=== PATIENT | female | born 1950 | race African-American/Black ===

== ENCOUNTER 2024-04-14 13:00 | Outpatient (RCR) | payer OTHER, SELFPAY ==
--- NOTE | 2024-02-03 14:53 | OTOPEVAL1 ---
Assessment and note entered by Adan Kidd, TAE/Mayank, CHT Evaluation Information Assessment Status Evaluation Diagnosis Carpal tunnel syndrome, right upper limb Subjective Information Patient reports experiencing intermittent tingling in her hand for about 3-4 months. 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 She wears a wrist immobilizer at work. No pain associated with this, just paresthesia. She reports she has been having difficulties with dropping items and with gripping. Reported Pain Level Pain Score 0: Self Report Additional Pain Score Comments No pain , just feeling tingling today. Assessment OT Clinical Summary Patient referred to OT with dx of carpal tunnel syndrome. She presents with intermittent paresthesia in the thumb, index, middle, and ring fingers of the right hand. She has positive upper limb tension test for the median nerve and positive Phalen's. Skilled OT indicated to for use of modalities, therapeutic exercise, modalities, manual therapy, HEP instruction and progression to facilitate reduced nerve compression and improved functional use of the right UE. Plan of Care Interventions Therapeutic Exercise,Manual Therapy,Therapeutic Activities,Hot Pack/Cold Pack,Ultrasound,Paraffin OT Services Indicated Yes Treatment Frequency and 1-2x/week for 8 visits Duration These treatments will address the objective and functional deficits as defined above. The patient will be advanced safely and appropriately in order for the patient to progress towards his/her prior level of function. Additional exercises will be introduced and as well as a comprehensive home exercise program upon discharge, if needed, ?to ensure carryover of functional gains achieved in the clinic. This treatment plan has been reviewed and agreement upon by the patient.
--- NOTE | 2024-02-03 14:53 | OPREHPOC ---
Outpatient Therapy Plan of Care This is a Multidisciplinary Plan of Care that may contain components documented by all disciplines (PT, OT, and ST.) OT Problem 1 OT Problem #1 Knowledge Deficit OT Goal 1 Goal / Goal Update 1. Patient to be independent with instructed materials. Target Visit 8 OT Problem 2 OT Problem #2 Impaired Flexibility OT Goal 1 Goal / Goal Update 1. Patient to be able to perform upper limb tension test with the right UE with a negative result to demonstrate reduced nerve compression/ irritation. Target Visit 8 OT Problem 3 OT Problem #3 Impaired Strength OT Goal 1 Goal / Goal Update 1. Patient to improve functional strength for ADLs as demonstrated by being able to complete gross wrist strengthening with 2 lb. free weight x20 reps. 2. Patient to improve functional strength for ADLs as demonstrated by improving right sheet catcher strength to 68 lbs.
--- NOTE | 2024-03-10 15:57 | OTOPPROG ---
Assessment and note entered by Adan Kidd, TAE/Mayank, CHT OT Progress Update 03/10/24 Diagnosis Carpal tunnel syndrome, right upper limb Subjective Information Patient reports progress with therapy. She states she has been experiencing less instances of tingling and not as severe of tingling in the right hand. She is noticing that she is having more days of no tingling at all. She reports improvement with not dropping items as much. She continues to wear a wrist brace at work. She does not wear the brace to sleep, reports she forgets to put it on. She reports that her HEP does relieve her symptoms. Assessment OT Clinical Summary Patient referred to OT with dx of carpal tunnel syndrome. She is making progress with therapy. She demonstrates reduced nerve sensitivity as measured by the Phalen's and reverse Phalen's tests - neither elicited tingling in her hand. She was able to complete upper limb tension test without nerve pain, but she does exhibit muscle tension with this. Overall her strength is improving and carpal tunnel symptoms are improving . Continued skilled OT indicated to progress her HEP, for continued use of modalities, therapeutic exercise, modalities, manual therapy, HEP instruction and progression to facilitate reduced nerve compression and improved functional use of the right UE. Plan of Care Interventions Therapeutic Exercise,Manual Therapy,Therapeutic Activities,Hot Pack/Cold Pack,Ultrasound,Paraffin OT Services Indicated Yes Treatment Frequency and 1x/week for 4 visits Duration These treatments will address the objective and functional deficits as defined above. The patient will be advanced safely and appropriately in order for the patient to progress towards his/her prior level of function. Additional exercises will be introduced and as well as a comprehensive home exercise program upon discharge, if needed, ?to ensure carryover of functional gains achieved in the clinic. This treatment plan has been reviewed and agreement upon by the patient.
--- NOTE | 2024-03-10 15:57 | OPREHPOC ---
Outpatient Therapy Plan of Care This is a Multidisciplinary Plan of Care that may contain components documented by all disciplines (PT, OT, and ST.) OT Problem 1 OT Problem #1 Knowledge Deficit OT Goal 1 Goal / Goal Update 1. Patient to be independent with instructed materials. ---OT POC UPDATE 03/10/24--- 1. Met, continue as HEP is progressed Target Visit 10 OT Problem 2 OT Problem #2 Impaired Flexibility OT Goal 1 Goal / Goal Update 1. Patient to be able to perform upper limb tension test with the right UE with a negative result to demonstrate reduced nerve compression/ irritation. ---OT POC UPDATE 03/10/24--- 1. Met Target Visit 10 OT Problem 3 OT Problem #3 Impaired Strength OT Goal 1 Goal / Goal Update 1. Patient to improve functional strength for ADLs as demonstrated by being able to complete gross wrist strengthening with 2 lb. free weight x20 reps. 2. Patient to improve functional strength for ADLs as demonstrated by improving right assistant foreman strength to 68 lbs. ---OT POC UPDATE 03/10/24--- 1. Progressing, fatigues at 15 reps, continue strengthening 2. Met, upgrade to 73 lbs. New Goal: 3. Increase right elbow and forearm strength for ADLs and work tasks as demonstrated by increasing to 3 lbs. for elbow and forearm strengthening x15 reps. Target Visit 10
--- NOTE | 2024-04-14 13:50 | OTOPDC ---
Assessment and note entered by TAE Acosta/Mayank, CHT OT Discharge 04/14/24 Assessment Status Discharge Diagnosis Carpal tunnel syndrome, right upper limb Subjective Information Patient reports progress with therapy. She states she has been experiencing less instances of tingling and not as severe of tingling in the right hand. She is noticing that she is having more days of no tingling at all. She reports her right hand can feel heavy at times, patient reports this typically occurs first thing in the morning. She intermittently wears a brace at night . Reports she stopped wearing the brace at night due to no longer having hand pain at night. She reports intermittent difficulty with picking up small items. Reported Pain Level Pain Score 0: Self Report Assessment OT Clinical Summary Patient referred to OT with dx of carpal tunnel syndrome. She has attended 9 OT sessions focused on reducing right hand paresthesia and pain. She has made great progress. No longer experiencing pain. Paresthesias have reduced. Phalen's and reverse Phalen's tests - neither elicited tingling in her hand. She was able to complete upper limb tension test without nerve pain. Bilateral UE strength is 5/5 and symmetrical. Bilateral assembly cleaner strengths are above normal limits. Reviewed HEP and splinting. Patient to continue with HEP. D/C OT with HEP. Plan of Care OT Services Indicated No
== END 2024-04-18 12:01 | disposition home or self-care (01) ==
LOC: ANHOT 13:00
PROVIDERS: PCP Physician Assistant; Visit Provider Physician Assistant
DX: G56.01 Carpal tunnel syndrome, right upper limb (principal)
CPT/HCPCS: 97018; 97035; 97110; 97140; 97165; 97530

== ENCOUNTER 2024-08-17 21:57 | Emergency (ER) | payer OTHER, SELFPAY ==
--- NOTE | ~2024-08-17 | CT_ITS ---
CT of the Abdomen and Pelvis: Indication: Constipation Technique: 2.5 mm axial scans were obtained through the abdomen and pelvis following intravenous adm inistration of 100 cc of Omnipaque 350. Dose reduction technique was used on this scan by utilizing a utomated exposure control and iterative reconstruction technique. The dose-length product (DLP) was 3 41.49 mGy-cm. Findings: Scans through the lung bases are unremarkable. The liver, spleen, pancreas, gallbladder, adrenals and left kidney are within normal limits. 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 No evidence of aortic aneurysm. No lymphadenopathy. Suspected wall thickening somewhat asymmetric to the left side of the distal rectum. There is promine nt stool at the rectum which could reflect fecal impaction/constipation.. Images through the pelvis were performed. Urinary bladder unremarkable. No pelvic mass. No ascites. Impression: Possible asymmetric wall thickening the left side of the distal rectum. Neoplastic lesion not exclude d. Correlation with direct inspection recommended. Prominent stool at the rectum could reflect fecal impaction/constipation. Malrotated right kidney. Reviewed, dictated and finalized at location M. Impression: Possible asymmetric wall thickening the left side of the distal rectum. Neoplas tic lesion not excluded. Correlation with direct inspection recommended. Prominent stool at the rectum could reflect fecal impaction/constipation. Malrotated right kidney.
[2024-08-17 22:00] VITALS: BP 138/72; PULSE 66; RESP 18; TEMP 36.7; O2SAT 100
--- OUTSIDE RECORDS SUMMARY | 2024-08-17 22:00 | XMS_ITS | Clinical Summary ---
Author Organization [facility] Address [address], [facility] [address] [place] [address] Phone Care Team Providers Care Coin Machine Collector Name Role Phone Beth Canseco DO Primary Care Provider [phone] Edin Reid DO Unavailable [phone] Allergies Active Allergy Reactions Criticality Noted Date Comments Atorvastatin Other (see Comments) Low 06/19/2016 Medications aspirin EC 81 MG Tablet Delayed Response Take 81 mg by mouth. 10/01/2016 Active linaclotide (LINZESS) 145 MCG Capsule Take 145 mcg by mouth. 08/12/2019 Active MULTIPLE VITAMIN PO Take by mouth. Gummy Active lisinopril (PRINIVIL, ZESTRIL) 10 MG Tablet TAKE 1 TABLET BY MOUTH ONCE DAILY 12/02/2020 Active Active Problems Problem Noted Date Diagnosed Date Nodule of left lung 12/11/2020 Immunizations Immunization Administration Dates Next Due Covid-19, Mrna, Lnp-s, Pf, 3 0 Mcg/0.3 Ml Dose ([employer]) 02/12/2021,06/28/2020,06/05/2020 Influenza Vaccine, Quadrivalent, PF 01/04/2020 Influenza, High-dose, Quadrivalent 01/11/2018 Influenza, high-dose, trivalent, PF 02/03/2019,0 01/11/2018 Pneumococcal Vaccine - 13 Valent 09/10/2017 Family History Medical History Relation Name Comments Cancer Brother Cancer Mother Diabetes Sister 1 Cancer Sister 2 Relation Name Status Comments Brother Father Mother Sister 1 Sister 2 Alive Social History Tobacco Use Types Packs/Day Years Used Date Smoking Tobacco: Never Smokeless Tobacco: Never Alcohol Use Standard Drinks/Week Comments Not Currently 0 (1 standard drink = 0.6 oz pur e alcohol) PHQ-2 Answer Date Recorded Total Score - Questions 1-9 0 03/20 Education Answer Date Recorded What is the highest level of school you have completed or the highest degree you have received? 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 Not on file Not on file Last Filed Vital Signs Vital Sign Reading Time Taken Comments Blood Pressure 124/70 04/09/2021 11:48 AM CARE NURSE RN Pulse 88 04/09/2021 11:48 AM CARE NURSE RN Temperature 36.1 C (96.9 F) 04/09/2021 11:48 AM CARE NURSE RN Respiratory Rate 18 04/09/2021 11:48 AM CARE NURSE RN Oxygen Saturation 99% 04/09/2021 11:48 AM CARE NURSE RN Inhaled Oxygen Concentration - - Weight 68.8 kg (151 lb 9.6 oz) 04/09/2021 11:48 AM CARE NURSE RN Height 167.6 cm (5' 6 ) 04/09/2021 11:48 AM CARE NURSE RN Body Mass Index 24.47 04/09/2021 11:48 AM CARE NURSE RN Plan of Treatment Health Maintenance Due Date Last Done Comments Hepatitis C Virus (HCV) Screening 1950 TdaP Immunization 1950 Colonoscopy 01/27/1997 Colorectal Cancer Screening 01/27/1997 Cologuard 01/27/2002 Immunochemical Fecal Occult Blood 01/27/2002 Zoster Immunization (1 of 2) 01/27/2002 Pneumococcal Immunization (50+ years) (2 of 2 - PPSV23) 09/10/2018 09/10/2017 Influenza Immunization (#1) 12/19/202312/18, 02/03/2019, 01/11/2018, Additional history exists SARS-COV-2 Immunization ( - season) 2023 02/12/2021, 06/28/2020, 06/05/2020 Respiratory Syncytial Virus (RSV) Immunization (Adult) (1 - 1-dose 75+ series) 01/27/2027 Hepatitis B Immunization Aged Out No longer eligible based on patient's age to complete this topic Meningococcal Immunization (ACWY) Aged Out No longer eligible based on patient's age to complete this topic Rotavirus Immunization Aged Out No lo nger eligible based on patient's age to complete this topic Insurance MEDICARE C [facility] Care Teams Coin Machine Collector Relationship Specialty Start Date End Date Beth Canseco DO [address] [id number] PCP - General Family Medicine 11/01/20 Edin Reid DO [address] [place] [address] [phone] Consulting Physician Oncology 11/01/20
--- OUTSIDE RECORDS SUMMARY | 2024-08-17 22:01 | XMS_ITS | Clinical Summary ---
Author Organization [facility] Address [facility] [place] [address] Care Team Providers Care Warpman Name Role Phone Tiffany Murray PA-C Primary Care Provider [phone] Allergies Active Allergy Reactions Criticality Noted Date Comments Atorvastatin Other (see comment) Low 06/19/2016 Medications aspirin 81 MG chewable tablet Chew 1 tablet (81 mg total) by mouth daily. Active Tenapanor HCl (IBSRELA) 50 MG Tab 02/19/2023 Active losartan (COZAAR) 25 MG tablet Take 1 tablet (25 mg total) by mouth daily. 01/11/2023 Active hydroCHLOROthia zide (MICROZIDE) 12.5 MG tablet Take 1 tablet (12.5 mg total) by mouth every morning. 03/03/2023 Active vitamin C (ASCORBIC ACID) 1000 MG tablet Take 1 tablet (1,000 mg total) by mouth daily. Active Probiotic Product (PROBIOTIC BLEND OR) Active guaiFENesin ER (MUCINEX) 600 MG 12 hr tablet Take 2 tablets (1,200 mg total) by mouth 2 (two) times daily. 28 tablet 05/12/2023 Active Active Problems Problem Noted Date Diagnosed Date Left wrist pain 09/23/2020 Acute bilateral ankle pain 09/05/2019 Sprain of deltoid ligament o f right ankle, initial encounter 09/05/2019 Sprain of left ankle, unspec ified ligament, initial encounter 09/05/2019 Hyperlipidemia 08/04/2018 Hypertensive disorder 08/04/2018 Shoulder pain 08/04/2018 Vitamin D deficiency 08/04/2018 Foot pain 08/04/2018 Encounters Date Type Department Care Team Description 08/16/2024 8:48 AM CDT Hospital Encounter [facility] [place] [address] Tiffany Murray PA-C Arrived 08/16/2024 Travel 07/20/2024 Telephone [facility] [address] [place] [address] Idalia Castle RMA Consult 07/19/2024 Telephone [facility] [address] [place] [address] Idalia Castle RMA Consult from Last 3 Months Family History Medical History Relation Comments No Known Problems Father Hypertension Mother Relation Status Comments Father Mother Social History Tobacco Use Types Packs/Day Years Used Date Smoking Tobacco: Never Smokeless Tobacco: Never Tobacco Cessation:Counseling Given: No Comments:non smoker Alcohol Use Standard Drinks/Week Comments No 0 (1 standard drink = 0.6 oz pur e alcohol) PHQ-2 Answer Date Recorded PHQ-2 Score - If the patient scores above 3, please move on to questions 3-9 0 04/30/2021 Comments No Sex and Gender Information Value Date Recorded Sex Assigned at Not on file Legal Sex Female 9:35 PM CDT Gender Identity Female 04/02/2021 8:55 PM VP ANCILLARY Sexual Orientation Straight 04/02/2021 8: 55 PM VP ANCILLARY Last Filed Vital Signs Vital Sign Reading Time Taken Comments Blood Pressure 123/84 05/12/2023 10:25 AM VP ANCILLARY Pulse 68 05/12/2023 10:25 AM VP ANCILLARY Temperature 36.8 C (98.3 F) 05/12/2023 10:25 AM VP ANCILLARY Respiratory Rate 16 05/12/2023 10:25 AM VP ANCILLARY Oxygen Saturation 100% 05/12/2023 10:25 AM VP ANCILLARY Inhaled Oxygen Concentration - - Weight 74.8 kg (165 lb) 05/12/2023 10:25 AM VP ANCILLARY Height 165.1 cm (5' 5 ) 05/12/2023 10:25 AM VP ANCILLARY Body Mass Index 27.46 05/12/2023 10:25 AM VP ANCILLARY Plan of Treatment Health Maintenance Due Date Last Done Comments Hepatitis C 01/27/1970 DTaP, Tdap and Td Vaccines (1 - Tdap) 01/27/1971 Zoster Vaccines (1 of 2) 01/27/2002 Annual Medicare Wellness Visit 01/27/2017 Pneumococcal Vaccine: 50+ Years (2 of 2 - PPSV23) 09/10/2018 09/10/2017 COVID-19 Vaccine ( - season) 2023 02/12/2021, 06/28/2020, 06/05/2020 PHQ-2 (Physician Harvey) 04/19/2024 Mammogram Screening 12/29/2025 08/16/2024, 12/30/2023, 06/30/2023, Additional history exists RSV Immunization or 60+ Years (1 - 1-dose 75+ series) 01/27/2027 Colorectal Cancer Screening Colonoscopy (10 Years) 05/13/2032 05/13/2022 Dexa Scan (General) Completed 01/05/2018 Meningococcal B Vaccine Aged Out No l onger eligible based on patient's age to complete this topic Meningococcal Vaccine Aged Out No nabeel stacy eligible based on patient's age to complete this topic RSV Immunizations Under 20 Months Aged Out No longer eligible based on patient's age to complete this topic Procedures Procedure Name Priority Date/Time Associated Diagnosis Comments US BREAST RT [employer] Routine 08/16/2024 9:40 AM CDT Abnormal mammography MG DIAG W JAQUELIN BILAT DIGI Routine 08/16/2024 9:21 AM CDT Abnormal mammography COLONOSCOPY/EGD GENERIC (SCAN ORDER) 05/13/2022 BONE DENSITY/DEXA Routine 01/05/2018 9:1 7 AM CDT Hyperparathyroidism from Last 3 Months or Most Recently Relevant to Health Maintenance Results * US BREAST RT Synapse (08/16/2024 9:40 AM CDT) Anatomical Region Laterality Modality Breast Right Ultrasound 08/16/2024 9:35 AM CDT Impressions 08/16/2024 9:41 AM CDT ===== IMPRESSION: ===== 1. Probably benign subcentimeter mass right breast has been stable for one year. One-year follow up appropriately. Assessment: ACR BI-RADS CATEGORY 3 - PROBABLY BENIGN FINDING(S) Recommendation: 1: Follow-up diagnostic mammogram and ultrasound right in 1 year Comments: Follow-up may be performed at the time of patient's annual bilateral mammography. Ordered By: TIFFANY MURRAY Interpreted By: Bong Lindsey, 08/16/2024 9:35 AM Narrative 08/16/2024 9:41 AM CDT [facility] [address] [place] [address] Examination: Diagnostic bilateral mammogram and right breast ultrasound [id number] Exam Date/Time: 08/16/2024 8:59 AM Reason For Exam: Follow-up probably benign right breast mass. Comparison: 12/30/2023, 06/30/2023, 05/19/2023, 04/29/2022 Technique: Bilateral diagnostic mammography and right breast ultrasound including sonographic grayscale images projections targeted in the region of interest. Doppler used to assess vasculature. 3D tomographic images were obtained. Tissue density: The breast tissue is heterogeneously dense. Findings: Mammogram: Small circumscribed right inferior breast mass is stable. No new or progressive or strongly suspicious findings in either breast. Rightbreast ultrasound: 6:00 position 5 to 6 cm from the nipple: Ovoid, circumscribed, homogeneously hypoechoic mass measures 9 x 7 x 3 mm, stable. Procedure Note Bong Lindsey MD - 08/16/2024 [facility] [address] [place] [address] Examination: Diagnostic bilateral mammogram and right breast ultrasound [id number] Exam Date/Time: 08/16/2024 8:59 AM Reason For Exam: Follow-up probably benign right breast mass. Comparison: 12/30/2023, 06/30/2023, 05/19/2023, 04/29/2022 Technique: Bilateral diagnostic mammography and right breast ultrasoundincluding sonographic grayscale images projections targeted in the regionof interest. Doppler used to assess vasculature. 3D tomographic images were obtained. Tissue density: The breast tissue is heterogeneously dense. Findings: Mammogram: Small circumscribed right inferior breast mass is stable. No new or progressive or strongly suspicious findings in either breast. Rightbreast ultrasound: 6:00 position 5 to 6 cm from the nipple: Ovoid,circumscribed, homogeneously hypoechoic mass measures 9 x 7 x 3 mm,stable. ===== IMPRESSION: ===== 1. Probably benign subcentimeter mass right breast has been stable forone year. One-year follow up appropriately. Assessment: ACR BI-RADS CATEGORY 3 - PROBABLY BENIGN FINDING(S) Recommendation: 1: Follow-up diagnostic mammogram and ultrasound right in 1 year Comments: Follow-up may be performed at the time of patient's annualbilateral mammography. Ordered By: TIFFANY MURRAY Interpreted By: Bong Lindsey, 08/16/2024 9:35 AM us Tiffany Murray PA-Ashvin ULTRASOUND Final Resul t * MG DIAG W JAQUELIN BILAT DIGI (08/16/2024 9:21 AM CDT) Anatomical Region Laterality Modality Breast Bilateral Mammography 08/16/2024 9:35 AM CDT Impressions 08/16/2024 9:41 AM CDT ===== IMPRESSION: ===== 1. Probably benign subcentimeter mass right breast has been stable for one year. One-year follow up appropriately. Assessment: ACR BI-RADS CATEGORY 3 - PROBABLY BENIGN FINDING(S) Recommendation: 1: Follow-up diagnostic mammogram and ultrasound right in 1 year Comments: Follow-up may be performed at the time of patient's annual bilateral mammography. Ordered By: TIFFANY MURRAY Interpreted By: Bong Lindsey, 08/16/2024 9:35 AM Narrative 08/16/2024 9:41 AM CDT [facility] [address] [place] [address] Examination: Diagnostic bilateral mammogram and right breast ultrasound [id number] Exam Date/Time: 08/16/2024 8:59 AM Reason For Exam: Follow-up probably benign right breast mass. Comparison: 12/30/2023, 06/30/2023, 05/19/2023, 04/29/2022 Technique: Bilateral diagnostic mammography and right breast ultrasound including sonographic grayscale images projections targeted in the region of interest. Doppler used to assess vasculature. 3D tomographic images were obtained. Tissue density: The breast tissue is heterogeneously dense. Findings: Mammogram: Small circumscribed right inferior breast mass is stable. No new or progressive or strongly suspicious findings in either breast. Rightbreast ultrasound: 6:00 position 5 to 6 cm from the nipple: Ovoid, circumscribed, homogeneously hypoechoic mass measures 9 x 7 x 3 mm, stable. Procedure Note Bong Lindsey MD - 08/16/2024 [facility] [address] [place] [address] Examination: Diagnostic bilateral mammogram and right breast ultrasound [id number] Exam Date/Time: 08/16/2024 8:59 AM Reason For Exam: Follow-up probably benign right breast mass. Comparison: 12/30/2023, 06/30/2023, 05/19/2023, 04/29/2022 Technique: Bilateral diagnostic mammography and right breast ultrasoundincluding sonographic grayscale images projections targeted in the regionof interest. Doppler used to assess vasculature. 3D tomographic images were obtained. Tissue density: The breast tissue is heterogeneously dense. Findings: Mammogram: Small circumscribed right inferior breast mass is stable. No new or progressive or strongly suspicious findings in either breast. Rightbreast ultrasound: 6:00 position 5 to 6 cm from the nipple: Ovoid,circumscribed, homogeneously hypoechoic mass measures 9 x 7 x 3 mm,stable. ===== IMPRESSION: ===== 1. Probably benign subcentimeter mass right breast has been stable forone year. One-year follow up appropriately. Assessment: ACR BI-RADS CATEGORY 3 - PROBABLY BENIGN FINDING(S) Recommendation: 1: Follow-up diagnostic mammogram and ultrasound right in 1 year Comments: Follow-up may be performed at the time of patient's annualbilateral mammography. Ordered By: TIFFANY MURRAY Interpreted By: Bong Lindsey, 08/16/2024 9:35 AM us Tiffany Murray PA-C MAMMO Final Resul t * COLONOSCOPY/EGD GENERIC (05/13/2022) 05/13/2022 [facility] Scanned SCANNING Final Resu lt * BONE DENSITY/DEXA (01/05/2018 9:17 AM CDT) Anatomical Region Laterality Modality Bone Mammography 01/05/2018 9:23 AM CDT Impressions 01/05/2018 9:25 AM CDT IMPRESSION: Femoral necks: normal. Lumbar spine: normal. Narrative 01/05/2018 9:25 AM CDT Examination: Bone Density Axial Exam Date/Time: 01/05/2018 8:51 AM Reason For Exam: Hyperparathyroidism. Comparison: None Findings: DEXA bone densitometry The bone mineral density (BMD) was determined by dual-energy x-ray absorptiometry, the results are as follows: AP Lumbar Spine L2 through L4 BMD Patient (GM/SQCM): 1.059 T-Score (Standard deviations from young adult peak bone density): -0.2 Bilateral femoral neck: BMD Patient (GM/SQCM): 0.758 T-Score (Standard deviations from young adult peak bone density): -0.8 Total femur: BMD Patient (GM/SQCM): 0.851 T-Score (Standard deviations from young adult peak bone density): -0.7 Procedure Note Ariel Olmedo MD - 01/05/2018 Examination: Bone Density Axial Exam Date/Time: 01/05/2018 8:51 AM Reason For Exam: Hyperparathyroidism. Comparison: None Findings: DEXA bone densitometry The bone mineral density (BMD) was determined by dual-energy x-ray absorptiometry, the results are as follows: AP Lumbar Spine L2 through L4 BMD Patient (GM/SQCM): 1.059 T-Score (Standard deviations from young adult peakbone density): -0.2 Bilateral femoral neck: BMD Patient (GM/SQCM): 0.758 T-Score (Standard deviations from young adult peakbone density): -0.8 Total femur: BMD Patient (GM/SQCM): 0.851 T-Score (Standard deviations from young adult peakbone density): -0.7 IMPRESSION: Femoral necks: normal. Lumbar spine: normal. Beth Canseco DO DEXA Edited Re sult - Final from Last 3 Months or Most Recently Relevant to Health Maintenance Additional Health Concerns Infection Onset Date Last Indicated C. difficile 01/08/2022 01/08/2022 Insurance [employer] Care Teams Warpman Relationship Specialty Start Date End Date Tiffany Murray PA-C [facility] [place] [address] PCP - General NURSE PRACTITIONER 03/16/23
--- OUTSIDE RECORDS SUMMARY | 2024-08-17 22:01 | XMS_ITS | Encounter Summary ---
Author Organization [facility] Address [address] [place] [address] Care Team Providers Care Hatchery Employee Name Role Phone Renetta Baca PA-C Primary Care Provider [phone] Encounter Details Date Type Department Care Team (Latest Contact Info) Description 08/16/2024 Travel Social History Tobacco Use Types Packs/Day Years Used Date Smoking Tobacco: Never Smokeless Tobacco: Never Comments:non smoker Alcohol Use Standard Drinks/Week Comments [...] CDT Gender Identity Female 04/02/2021 8:55 PM CHOCOLATIER Sexual Orientation Straight 04/02/2021 8: 55 PM CHOCOLATIER documented as of this encounter Plan of Treatment Not on file documented as of this encounter Visit Diagnoses Not on filedocumented in this encounter Additional Health Concerns Infection Onset Date Last Indicated Resolved Time C. difficile 01/08/2022 01/08/2022 Assessment Noted Time PHQ-9 Depression Total Score: 0 04/30/19 11:24 AM CHOCOLATIER documented as of this encounter Care Teams Hatchery Employee Relationship Specialty Start Date End Date Renetta Baca PA-C [address] [place] [id number] PCP - General NURSE PRACTITIONER 03/16/23 documented as of this encounter
--- OUTSIDE RECORDS SUMMARY | 2024-08-17 22:01 | XMS_ITS | Clinical Summary ---
Author Organization [facility] Address [address] [facility] [place] [address] Care Team Providers Care Program Manager Rn Name Role Phone Unavailable Primary Care Provider Unavailabl e Source Comments [facility],non-owned Affiliates and Associated Physician Practices is amultiple site organization consisting of ambulatory clinics and hospital sitesin [place], [place], [place] and [place]. This disclosure is being madepursuant to the Care Everywhere program and may not contain all information available regarding this patient. Last updated 18.[facility] Allergies Active Allergy Reactions Criticality Noted Date Comments Atorvastatin Other Low 06/19/2016 Medications * Be aware that medications may not be up to date on this document. Alwaysverify current medications with the patient. vitamin D, cholecalciferol , 2000 UNITS tablet Take 2,000 Units by mouth DAILY. 90 tablet 5 7 Active Additional Information Patient not taking.Reported on 03/03/2021 atenolol (TENORMIN) 25 MG tablet Take 25 mg by mouth DAILY. 7 Active Aspirin 81 MG Take 81 mg by mouth DAILY. 7 Active lisinopril (PRINIVIL; ZESTRIL) 20 MG tablet Take 20 mg by mouth DAILY. 7 Active pravastatin (PRAVACHOL) 40 MG tablet Take 40 mg by mouth. 7 Active magnesium 250 MG tablet Take 250 mg by mouth once daily Active linaCLOtide (LINZESS) 145 MCG capsule Take 145 mcg by mouth daily before breakfast Take on an empty stomach at least 30 minutes prior to first meal of the day. 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 (FLUZONE HIGH-DOSE QUADRIVALENT; 65Y+), 0.7 ML (HD-IIV4) 02/03/2019,01/11/2018 INFLUENZA VACCINE, QUADR. (F LUZONE; FLULAVAL; FLUARIX; AFLURIA QUADRIVALENT; 6MO+), 0.5 ML (IIV4) 01/04/2020 Pneumococcal Pcv13 Conj 09/10/2017 Family History Medical History Relation Name Comments Diabetes - Type 1 Maternal Aunt Hypertension Mother Diabetes - Type 1 Paternal Aunt Diabetes - Type 1 Sister 1 Hypertension Sister 2 Relation Name Status Comments Maternal Aunt Mother Paternal Aunt Sister 1 Sister 2 Social History Tobacco Use Types Packs/Day Years Used Date Smoking Tobacco: Never Smokeless Tobacco: Never Alcohol Use Standard Drinks/Week Comments No 0 (1 standard drink = 0.6 oz pur e alcohol) Comments No Sex and Gender Information Value Date Recorded Sex Assigned at Not on file Legal Sex Female 5:15 PM HOLE DIGGER OPERATOR Gender Identity Not on file Sexual Orientation Not on file Last Filed Vital Signs Vital Sign Reading Time Taken Comments Blood Pressure 120/84 03/03/2021 9:55 AM HOLE DIGGER OPERATOR Pulse 64 03/03/2021 9:55 AM HOLE DIGGER OPERATOR Temperature 36.9 C (98.5 F) 03/03/2021 9:55 AM HOLE DIGGER OPERATOR Respiratory Rate 16 08/04/2018 10:54 AM CDT Oxygen Saturation 98% 03/03/2021 9:55 AM HOLE DIGGER OPERATOR Inhaled Oxygen Concentration - - Weight 67.7 kg (149 lb 3.2 oz) 03/03/2021 9:55 A M HOLE DIGGER OPERATOR Height 165.1 cm (5' 5 ) 03/03/2021 9:55 AM HOLE DIGGER OPERATOR Body Mass Index 24.83 03/03/2021 9:55 AM HOLE DIGGER OPERATOR Plan of Treatment Health Maintenance Due Date Last Done Comments BONE DENSITY TESTING 1950 COLOGUARD (AGES 45-75) - COL ON CA SCREENING 1950 COLON MONITORING 1950 COLONOSCOPY - COLON CA SCREENING 1952 CT COLONOGRAPHY - COLON CA SCREENING 1950 Colorectal Cancer Screening 1950 FIT - COLON CA SCREENING 1952 FLEX SIG - COLON CA SCREENING 1950 MAMMOGRAM 1950 HEPATITIS C SCREENING 01/23/1970 DTAP/TDAP/TD VACCINES (1 - Tdap) 01/27/1971 ZOSTER VACCINE (1 of 2) 01/27/2002 PNEUMOCOCCAL VACCINE 50+ (2 of 2 - PPSV23) 09/10/2018 09/10/2017 COVID-19 VACCINE (4 - 2023-2 5 season) 2023 02/12/2021, 06/28/2020, 06/05/2020 DEPRESSION SCREENING 04/19/2024 INFLUENZA VACCINE (Season Ended) 2024 01/04/2020, 02/03/2019, 01/11/2018 Respiratory Syncytial Virus (RSV) Vaccine Pt: or over 60 yrs (1 - 1-dose 75+ series) 01/27/2027 HEPATITIS B VACCINE Aged Out No longe r eligible based on patient's age to complete this topic HIB VACCINE Aged Out No longer eligi ble based on patient's age to complete this topic HPV VACCINE Aged Out No longer eligi ble based on patient's age to complete this topic MENINGOCOCCAL (Group B) VACCINE SHARED DECISION-MAKING Aged Out No longer eligible based on patient's age to complete this topic MENINGOCOCCAL GROUPS A/C/Y/W VACCINE Aged Out No longer eligible b ased on patient's age to complete this topic Insurance AETNA
--- OUTSIDE RECORDS SUMMARY | 2024-08-17 22:01 | XMS_ITS | Encounter Summary ---
Author Organization [facility] Address [address] [place] [address] Care Team Providers Care Rn Chemical Dependency Name Role Phone Tiffnay Murray PA-C Primary Care Provider [phone] [phone] Reason for Referral * Imaging (Routine) - Closed Specialty Diagnoses / Procedures Referred By Jillian lewis Referred To Contact RADIOLOGY Diagnoses Abnormal mammography Procedures US BREAST RT [facility] Tiffany Murray PA-C [address] [place] [id number] Phone: tel: fax: Referral ID Status Reason Start Date Expiration Date V isits Requested Visits Authorized [id number] Closed Ultrasound 06/21/2024 06/21/2025 1 1 Encounter Details Date Type Department Care Team (Late st Contact Info) Description 08/16/2024 8:48 AM CDT Hospital Encounter [facility] [address] [address] Tiffany Murray PA-C [address] [place] [id number] Arrived Social History Tobacco Use Types Packs/Day Years [...] CDT Gender Identity Female 04/02/2021 8:55 PM COMBUSTION ANALYST Sexual Orientation Straight 04/02/2021 8: 55 PM COMBUSTION ANALYST documented as of this encounter Plan of Treatment Not on file documented as of this encounter Procedures Procedure Name Priority Date/Time Associated Diagnosis Comments US BREAST RT [employer]IRAD LTD Routine 08/16/2024 9:40 AM CDT Abnormal mammography MG DIAG W JAQUELIN BILAT DIGI Routine 08/16/2024 9:21 AM CDT Abnormal mammography documented in this encounter Results * US BREAST RT BIRAD LTD (08/16/2024 9:40 AM CDT) Anatomical Region Laterality [...] 9:35 AM Narrative 08/16/2024 9:41 AM CDT [facility] [address] [place] [address] Examination: Diagnostic bilateral mammogram and right breast ultrasound [id number] Exam Date/Time: 08/16/2024 8:59 AM Reason For [...] Procedure Note Bong Lindsey MD - 08/16/2024 [facility] [address] [place] [address] Examination: Diagnostic bilateral mammogram and right breast ultrasound [id number] Exam Date/Time: 08/16/2024 8:59 AM Reason For [...] Bong Lindsey, 08/16/2024 9:35 AM us Tiffany PATEL-Ashvin ULTRASOUND Final Resul t * MG DIAG [...] 9:35 AM Narrative 08/16/2024 9:41 AM CDT [facility] [address] [place] [address] Examination: Diagnostic bilateral mammogram and right breast ultrasound [id number] Exam Date/Time: 08/16/2024 8:59 AM Reason For [...] Procedure Note Bong Lindsey MD - 08/16/2024 [facility] [address] [place] [address] Examination: Diagnostic bilateral mammogram and right breast ultrasound [id number] Exam Date/Time: 08/16/2024 8:59 AM Reason For [...] Bong Lindsey, 08/16/2024 9:35 AM us Tiffany PATEL-Ashvin MAMMO Final Resul t documented in this encounter Visit Diagnoses Diagnosis Abnormal mammography Abnormal mammogram, unspecified documented in this encounter Additional Health Concerns Infection Onset Date Last Indicated Resolved Time C. difficile 01/08/2022 01/08/2022 Assessment Noted Time PHQ-9 Depression Total Score: 0 04/30/19 11:24 AM COMBUSTION ANALYST documented as of this encounter Care Teams Rn Chemical Dependency Relationship Specialty Start Date End Date Tiffany Murray PA-C [facility] [place] [address] PCP - General NURSE PRACTITIONER 03/16/23 documented as of this encounter
--- NOTE | 2024-08-17 22:53 | ED_ITS ---
HPI - General Adult General Chief complaint: Unspecified Stated complaint: Constipation Time Seen by Provider: 08/17/24 22:46 History of Present Illness HPI narrative: Patient is a 74-year-old female who presents to the emergency department this evening complaining of constipation for the past 2 days. Patient states that she has tried enemas and laxatives at home with no results. Believes that her last bowel movement was 2-3 days ago. Currently denies any nausea, vomiting or abdominal pain, denies any urinary symptoms including dysuria or hematuria. Patient admits that she does struggle with constipation and her family doctor had her on a constipation pill that she did not want to take anymore so they switched her over to MiraLax which she just started taking today. Denies any additional symptoms or concerns at this time. Related Data Allergies Allergy/AdvReac Type Severity Reaction Status Date / Time No Known Allergies Allergy Verified 08/17/24 21:58 Review of Systems 2 Review of Systems: All systems are reviewed and are negative unless stated otherwise in the HPI. Exam 2 Narrative: General: Alert, awake, afebrile, in no acute distress. HEENT: PERRL, no rhinorrhea, no post nasal drip, oropharynx clear. Neck: Trachea midline, no JVD, no lymphadenopathy. Cardiovascular: Regular rate and rhythm, no murmurs, rubs or gallops, no peripheral edema. Respiratory: Clear to auscultation bilaterally, no tachypnea, no wheezing, no rhonchi, no rubs, no respiratory distress. Abdomen: Soft, nontender, nondistended, no rebound, no guarding, no peritoneal signs. Musculoskeletal: No joint swelling or deformity, normal muscle tone. Skin: No rashes or petechia, no signs of infection. Psychiatric: Alert and oriented, normal behavior and judgment for situation. Neurological: Alert and oriented to person, place, and time. Follows all commands. No focal deficits, speech is clear and fluent. Course Vital Signs Vital signs: Vital Signs Temperature 98.1 F 08/17/24 22:00 Pulse Rate 66 08/17/24 22:00 Respiratory Rate 18 08/17/24 22:00 Blood Pressure 138/72 08/17/24 22:00 Pulse Oximetry 100 08/17/24 22:00 Oxygen Delivery Room Air 08/17/24 22:00 Temperature 98.1 F 08/17/24 22:00 Pulse Rate 60 08/17/24 23:05 Respiratory Rate 18 08/17/24 22:00 Blood Pressure 138/72 08/17/24 22:00 Pulse Oximetry 100 08/17/24 22:00 Oxygen Delivery Room Air 08/17/24 22:00 Medical Decision Making MDM Narrative Medical decision making narrative: The patient was evaluated by myself in the emergency department. History is obtained from patient who is an independent historian and physical exam was performed. External medical records were reviewed at this time. IV was established and pertinent tests were ordered. Laboratory results obtained revealing no acute process. Urinalysis unremarkable. Imaging studies obtained included CT abdomen pelvis with IV contrast which was independently interpreted by me revealing rectal fecal impaction, no bowel obstruction, otherwise unremarkable. Shortly after obtaining CT scan, patient had a large bowel movement in the emergency department. Differential diagnosis considerations include constipation, bowel obstruction, dehydration, electrolyte derangements. Comorbidities impacting this visit include history of constipation. I have evaluated and discussed social determinants of health with the patient that could potentially impact subsequent diagnosis and treatment plans. On repeat assessment of the patient, reevaluation revealed that the patient is doing well and is in no acute distress. Patient symptoms have improved since she arrived to our emergency department. Repeat vital signs were all reviewed and noted to be stable. Differential diagnosis and treatment plan were discussed with the patient at bedside. Patient agrees with discussion and after shared medical decision making agrees with discharge. All questions were answered to the patient's satisfaction. Patient will follow up with her PCP in 3-5 days. A script for Colace was sent to patient's pharmacy to take as prescribed to help her with her constipation. Patient was provided with strict return precautions and instructed to return to the emergency department if any new or worsening symptoms develop. The patient was discharged in stable condition. Vital Signs Vital Signs: Vital Signs Temperature 98.1 F 08/17/24 22:00 Pulse Rate 66 08/17/24 22:00 Respiratory Rate 18 08/17/24 22:00 Blood Pressure 138/72 08/17/24 22:00 Pulse Oximetry 100 08/17/24 22:00 Oxygen Delivery Room Air 08/17/24 22:00 Temperature 98.1 F 08/17/24 22:00 Pulse Rate 60 08/17/24 23:05 Respiratory Rate 18 08/17/24 22:00 Blood Pressure 138/72 08/17/24 22:00 Pulse Oximetry 100 08/17/24 22:00 Oxygen Delivery Room Air 08/17/24 22:00 Lab Data 08/17/24 23:04 08/17/24 23:04 Labs: Lab Results 08/17/24 08/18/24 Range/Units 23:04 00:09 WBC 4.1 L (4.5-10.0) K/mm3 RBC 3.77 L (4.2-5.4) M/mm3 Hgb 11.4 L (12.0-15.0) g/dL Hct 35.6 L (37.0-47.0) % MCV 94.4 (80-100) fl MCH 30.2 (26-34) pg MCHC 32.0 (32-36) g/dl RDW 12.7 (11.5-14.5) % Plt Count 227 (150-375) k/mm3 MPV 8.9 (7.4-10.4) fl Immature Gran % (Auto) 0.2 (0-0.5) % Neut % (Auto) 58.6 (45.5-73.1) % Lymph % (Auto) 29.5 (18.3-44.2) % [place] % (Auto) 7.1 (2.6-8.5) % Eos % (Auto) 3.9 (0-4.4) % Baso % (Auto) 0.7 (0.2-1.2) % Lymph # (Auto) 1.21 (0.9-3.2) K/mm3 [place] # (Auto) 0.3 (0.1-0.6) K/mm3 Eos # (Auto) 0.2 (0-0.3) K/mm3 Baso # (Auto) 0.0 (0.0-0.1) K/mm3 Abs Immat Gran (auto) 0.01 (0.00-0.031) K/mm3 Absolute Neuts (auto) 2.4 (1.3-6.7) K/mm3 Absolute Nucleated RBC 0.000 (0.0-0.012) K/mm3 Nucleated RBC % 0.0 (0.0-0.2) % Sodium 134 L (137-145) mmol/L Potassium 3.7 (3.4-5.0) mmol/L Chloride 98 (98-107) mmol/L Carbon Dioxide 30 (22-30) mmol/L Anion Gap 6 (4-12) mmol/L BUN 18 H (7-17) mg/dL Creatinine 0.56 L (0.7-1.0) mg/dL Estim Creat Clear Calc 69 ml/min Estimated GFR > 60 (59 - ) Glucose 95 (65-110) mg/dL POC Capillary Glucose 76 (65-105) mg/dl Calcium 10.3 H (8.4-10.2) mg/dL Magnesium 2.3 (1.6-2.3) mg/dL Total Bilirubin 0.6 (0.2-1.3) mg/dL AST 25 (14-36) U/L ALT 16 (6-35) U/L Alkaline Phosphatase 104 (38-126) U/L Total Protein 8.0 (6.3-8.2) g/dL Albumin 4.3 (3.5-5.1) g/dL Lipase 68 (23-300) U/L Urine Color Yellow (Yellow) Urine Appearance Clear (Clear) Urine pH 6.5 (5.0-9.0) Ur Specific [place] 1.015 (1.001-1.035) Urine Protein Negative (Negative) mg/dL Urine Glucose (UA) Negative (Negative) mg/dL Urine Ketones Negative (Negative) mg/dL Ur Blood (Man) Negative (Negative) Urine Nitrate Negative (Negative) Urine Bilirubin Negative (Negative) Urine Urobilinogen 1.0 (<2.0) mg/dL Leukocyte Esterase Rfl Negative (Negative) YESSENIA/UL Discharge Plan Discharge Clinical Impression: Constipation Patient Disposition: Home Condition: Improved Instructions: Antibiotic Form, Constipation (DC) Additional Instructions: Take 1 scoop of MiraLax every hour for up to 5 hours until you have a bowel movement. You also prescribed a stool softener and instructed to take it as prescribed to help regulate her bowel movements. Follow-up with your family doctor within the next 3-5 days. Return to the emergency department if any new or worsening symptoms develop. Patient Language: [place] Prescriptions: New docusate sodium [Colace] 100 mg capsule 100 mg PO BID Qty: 14 0RF Follow-up/Referrals: Phuong,AMANDA Soler [Primary Care Provider] - 3 Days Time of Disposition: 03:58
--- OUTSIDE RECORDS SUMMARY | 2024-08-17 23:00 | XMS_ITS | Clinical Summary ---
Author Organization [facility] Address [address], [facility] [address] [place] [address] Phone Care Team Providers Care Frame Runner Name Role Phone Beth Canseco DO Primary Care Provider [phone] Edin Reid DO Unavailable [phone] Allergies Active Allergy Reactions Criticality Noted Date [...] Lnp-s, Pf, 3 0 Mcg/0.3 Ml Dose ([employer]) 02/12/2021,06/28/2020,06/05/2020 Influenza Vaccine, Quadrivalent, PF 01/04/2020 Influenza, [...] Comments Blood Pressure 124/70 04/09/2021 11:48 AM CAFE LEAD Pulse 88 04/09/2021 11:48 AM CAFE LEAD Temperature 36.1 C (96.9 F) 04/09/2021 11:48 AM CAFE LEAD Respiratory Rate 18 04/09/2021 11:48 AM CAFE LEAD Oxygen Saturation 99% 04/09/2021 11:48 AM CAFE LEAD Inhaled Oxygen Concentration - - Weight 68.8 kg (151 lb 9.6 oz) 04/09/2021 11:48 AM CAFE LEAD Height 167.6 cm (5' 6 ) 04/09/2021 11:48 AM CAFE LEAD Body Mass Index 24.47 04/09/2021 11:48 AM CAFE LEAD Plan of Treatment Health Maintenance Due Date [...] to complete this topic Insurance MEDICARE C [facility] Care Teams Frame Runner Relationship Specialty Start Date End Date Beth Canseco DO [address] [address] PCP - General Family Medicine 11/01/20 Edin Reid DO [address] [place] [phone] Consulting Physician Oncology 11/01/20
--- OUTSIDE RECORDS SUMMARY | 2024-08-17 23:02 | XMS_ITS | Clinical Summary ---
Author Organization [facility] Address [facility] [place] [address] Care Team Providers Care Special Education Teacher Name Role Phone Tiffany Murray PA-C Primary Care Provider [phone] Allergies Active Allergy Reactions Criticality Noted Date [...] Description 08/16/2024 8:48 AM CDT Hospital Encounter [facility] [place] [address] Tiffany Murray PA-C Arrived 08/16/2024 Travel 07/20/2024 Telephone [facility] [address] [place] [address] Idalia Castle RMA Consult 07/19/2024 Telephone [facility] [address] [place] [address] Idalia Castle RMA Consult from Last 3 [...] CDT Gender Identity Female 04/02/2021 8:55 PM PARTS AND SERVICE MANAGER Sexual Orientation Straight 04/02/2021 8: 55 PM PARTS AND SERVICE MANAGER Last Filed Vital Signs Vital Sign Reading Time Taken Comments Blood Pressure 123/84 05/12/2023 10:25 AM PARTS AND SERVICE MANAGER Pulse 68 05/12/2023 10:25 AM PARTS AND SERVICE MANAGER Temperature 36.8 C (98.3 F) 05/12/2023 10:25 AM PARTS AND SERVICE MANAGER Respiratory Rate 16 05/12/2023 10:25 AM PARTS AND SERVICE MANAGER Oxygen Saturation 100% 05/12/2023 10:25 AM PARTS AND SERVICE MANAGER Inhaled Oxygen Concentration - - Weight 74.8 kg (165 lb) 05/12/2023 10:25 AM PARTS AND SERVICE MANAGER Height 165.1 cm (5' 5 ) 05/12/2023 10:25 AM PARTS AND SERVICE MANAGER Body Mass Index 27.46 05/12/2023 10:25 AM PARTS AND SERVICE MANAGER Plan of Treatment Health Maintenance Due Date Last Done Comments Hepatitis C 01/27/1970 DTaP, Tdap and Td Vaccines (1 - Tdap) 01/27/1971 Zoster Vaccines (1 of 2) 01/27/2002 Annual Medicare Wellness Visit 01/27/2017 Pneumococcal Vaccine: 50+ Years (2 of 2 - PPSV23) 09/10/2018 09/10/2017 COVID-19 Vaccine ( - season) 2023 02/12/2021, 06/28/2020, 06/05/2020 PHQ-2 (Physician [place]) 04/19/2024 Mammogram Screening 12/29/2025 08/16/2024, 12/30/2023, 06/30/2023, [...] Date/Time Associated Diagnosis Comments US BREAST RT [employer] Routine 08/16/2024 9:40 AM CDT Abnormal mammography MG DIAG W JAQUELIN BILAT DIGI Routine 08/16/2024 9:21 AM CDT Abnormal mammography COLONOSCOPY/EGD GENERIC (SCAN ORDER) 05/13/2022 BONE DENSITY/DEXA Routine 01/05/2018 9:1 7 AM CDT Hyperparathyroidism from Last 3 Months or Most Recently Relevant to Health Maintenance Results * US BREAST RT [place] (08/16/2024 9:40 AM CDT) Anatomical Region Laterality [...] 9:35 AM Narrative 08/16/2024 9:41 AM CDT [facility] [place] [address] Examination: Diagnostic bilateral mammogram and right breast ultrasound [id number] Exam Date/Time: 08/16/2024 8:59 AM Reason For [...] Procedure Note Bong Lindsey MD - 08/16/2024 [facility] [place] [address] Examination: Diagnostic bilateral mammogram and right breast ultrasound [id number] Exam Date/Time: 08/16/2024 8:59 AM Reason For [...] 9:35 AM Narrative 08/16/2024 9:41 AM CDT [facility] [address] [place] [address] Examination: Diagnostic bilateral mammogram and right breast ultrasound [id number] Exam Date/Time: 08/16/2024 8:59 AM Reason For [...] Procedure Note Bong Lindsey MD - 08/16/2024 [facility] [address] [place] [address] Examination: Diagnostic bilateral mammogram and right breast ultrasound [id number] Exam Date/Time: 08/16/2024 8:59 AM Reason For [...] mammography. Ordered By: TIFFANY MURRAY Interpreted By: Bnog Lindsey, 08/16/2024 9:35 AM us Tiffany Murray [...] difficile 01/08/2022 01/08/2022 Insurance [employer] Care Teams Special Education Teacher Relationship Specialty Start Date End Date Tiffany Murray PA-C [facility] [place] [address] PCP - General NURSE PRACTITIONER 03/16/23
--- OUTSIDE RECORDS SUMMARY | 2024-08-17 23:02 | XMS_ITS | Encounter Summary ---
Author Organization [facility] Address [address] [place] [address] Care Team Providers Care Airplane Rental Clerk Name Role Phone Renetta Baca PA-C Primary Care Provider [phone] Encounter Details Date Type Department Care Team [...] CDT Gender Identity Female 04/02/2021 8:55 PM CARDIOVASCULAR PHYSICIAN ASSISTANT Sexual Orientation Straight 04/02/2021 8: 55 PM CARDIOVASCULAR PHYSICIAN ASSISTANT documented as of this encounter Plan of Treatment Not on file documented as of this encounter Visit Diagnoses Not on filedocumented in this encounter Additional Health Concerns Infection Onset Date Last Indicated Resolved Time C. difficile 01/08/2022 01/08/2022 Assessment Noted Time PHQ-9 Depression Total Score: 0 04/30/19 11:24 AM CARDIOVASCULAR PHYSICIAN ASSISTANT documented as of this encounter Care Teams Airplane Rental Clerk Relationship Specialty Start Date End Date Renetta Baca PA-C [address] [place] [id number] PCP - General NURSE PRACTITIONER 03/16/23 documented as of this encounter
--- OUTSIDE RECORDS SUMMARY | 2024-08-17 23:02 | XMS_ITS | Clinical Summary ---
Author Organization [facility] Address [address] [facility] [place] [address] Care Team Providers Care Physical Instructor Name Role Phone Unavailable Primary Care Provider Unavailabl e Source Comments [facility],non-owned Affiliates and Associated Physician Practices is amultiple site organization consisting of ambulatory clinics and hospital sitesin [place], [place], [place] and [place]. This disclosure is being madepursuant to the Care Everywhere program and may not contain all information available regarding this patient. Last updated 18.[facility] Allergies Active Allergy Reactions Criticality Noted Date [...] on file Legal Sex Female 5:15 PM RAISER HELPER Gender Identity Not on file Sexual Orientation Not on file Last Filed Vital Signs Vital Sign Reading Time Taken Comments Blood Pressure 120/84 03/03/2021 9:55 AM RAISER HELPER Pulse 64 03/03/2021 9:55 AM RAISER HELPER Temperature 36.9 C (98.5 F) 03/03/2021 9:55 AM RAISER HELPER Respiratory Rate 16 08/04/2018 10:54 AM CDT Oxygen Saturation 98% 03/03/2021 9:55 AM RAISER HELPER Inhaled Oxygen Concentration - - Weight 67.7 kg (149 lb 3.2 oz) 03/03/2021 9:55 A M RAISER HELPER Height 165.1 cm (5' 5 ) 03/03/2021 9:55 AM RAISER HELPER Body Mass Index 24.83 03/03/2021 9:55 AM RAISER HELPER Plan of Treatment Health Maintenance Due Date [...]
--- OUTSIDE RECORDS SUMMARY | 2024-08-17 23:02 | XMS_ITS | Encounter Summary ---
Author Organization [facility] Address [address] [place] [address] Care Team Providers Care Pct Name Role Phone Tiffany Murray PA-C Primary Care Provider [phone] Reason for Referral * Imaging (Routine) - Closed Specialty Diagnoses / Procedures Referred By Jillian lewis Referred To Contact RADIOLOGY Diagnoses Abnormal mammography Procedures US BREAST RT [facility] Tiffany Murray PA-C [address] [place] [address] Phone: tel: fax: Referral ID Status Reason Start Date Expiration Date V isits Requested Visits Authorized [id number] Closed Ultrasound 06/21/2024 06/21/2025 1 1 Encounter Details Date Type Department Care Team (Late st Contact Info) Description 08/16/2024 8:48 AM CDT Hospital Encounter [facility]ography [address] [facility] [place] [address] Tiffany Murray PA-C [address] [place] [address] Arrived Social History Tobacco Use Types [...] CDT Gender Identity Female 04/02/2021 8:55 PM CONTRACT ADMINISTRATION COORDINATOR Sexual Orientation Straight 04/02/2021 8: 55 PM CONTRACT ADMINISTRATION COORDINATOR documented as of this encounter Plan of [...] 9:35 AM Narrative 08/16/2024 9:41 AM CDT [facility] [place] [address] Examination: Diagnostic bilateral mammogram and right breast ultrasound [id number] Exam Date/Time: 08/16/2024 8:59 AM Reason For [...] Procedure Note Bong Lindsey MD - 08/16/2024 [facility] [place] [address] Examination: Diagnostic bilateral mammogram and right breast ultrasound [id number] Exam Date/Time: 08/16/2024 8:59 AM Reason For [...] 9:35 AM Narrative 08/16/2024 9:41 AM CDT [facility] [address] [place] [address] Examination: Diagnostic bilateral mammogram and right breast ultrasound [id number] Exam Date/Time: 08/16/2024 8:59 AM Reason For [...] Procedure Note Bong Lindsey MD - 08/16/2024 [facility] [address] [place] [address] Examination: Diagnostic bilateral mammogram and right breast ultrasound [id number] Exam Date/Time: 08/16/2024 8:59 AM Reason For [...] Depression Total Score: 0 04/30/19 11:24 AM CONTRACT ADMINISTRATION COORDINATOR documented as of this encounter Care Teams Pct Relationship Specialty Start Date End Date Tiffany Murray PA-C [facility] [place] [address] PCP - General NURSE PRACTITIONER 03/16/23 documented as of this encounter
[2024-08-17 23:05] VITALS: PULSE 60
[2024-08-17 23:11] LABS: Basophils Percent Auto 0.7 % (0.2-1.2); Eosinophils Absolute Auto 0.2 K/mm3 (0-0.3); Eosinophils Percent Auto 3.9 % (0-4.4); Hematocrit 35.6 % (37.0-47.0); Hemoglobin 11.4 g/dL (12.0-15.0); Immature Granulocyte Absolute 0.01 K/mm3 (0.00-0.031); Immature Granulocyte Percent A 0.2 % (0-0.5); Lymphocytes Absolute Auto 1.21 K/mm3 (0.9-3.2); Lymphocytes Percent Auto 29.5 % (18.3-44.2); Mean Corpuscular Hemoglobin 30.2 pg (26-34); Mean Corpuscular Volume 94.4 fl (80-100); Mean Platelet Volume 8.9 fl (7.4-10.4); Monocytes Absolute Auto 0.3 K/mm3 (0.1-0.6); Monocytes Percent Auto 7.1 % (2.6-8.5); Neutrophils Absolute Auto 2.4 K/mm3 (1.3-6.7); Neutrophils Percent Auto 58.6 % (45.5-73.1); Platelet Count Result 227 k/mm3 (150-375); Red Blood Count 3.77 M/mm3 (4.2-5.4); Red Cell Distribution Width 12.7 % (11.5-14.5); White Blood Count 4.1 K/mm3 (4.5-10.0)
[2024-08-17 23:13] LABS: Add Urine Microscopic? NO; Appearance Urine Clear (Clear); Bilirubin Urine Negative (Negative); Blood Urine Negative (Negative); Color Urine Yellow (Yellow); Glucose Urine UA Negative (Negative); Ketones Urine Negative (Negative); Leukocyte Esterase Ur Negative LEU/UL (Negative); Nitrate Urine Negative (Negative); Protein Urine Negative (Negative); Specific Grav Ur 1.015 (1.001-1.035); pH Urine 6.5 (5.0-9.0)
[2024-08-17 23:40] LABS: Alanine Aminotransferase 16 U/L (6-35); Albumin Level 4.3 g/dL (3.5-5.1); Alkaline Phosphatase 104 U/L (38-126); Anion Gap 6 mmol/L (4-12); Aspartate Amino Transferase 25 U/L (14-36); Bilirubin,Total 0.6 mg/dL (0.2-1.3); Blood Urea Nitrogen 18 mg/dL (7-17); Calcium 10.3 mg/dL (8.4-10.2); Carbon Dioxide 30 mmol/L (22-30); Chloride 98 mmol/L (98-107); Estimated CRCL calculation 69 ml/min; Estimated Glomerular Filt Rate > 60; Glucose 95 mg/dL (65-110); Lipase 68 U/L (23-300); Magnesium 2.3 mg/dL (1.6-2.3); Potassium 3.7 mmol/L (3.4-5.0); Sodium 134 mmol/L (137-145)
--- NOTE | 2024-08-18 | PC.NURSE ---
Pt ambulatory to bathroom with even and steady gait.
[2024-08-18 00:15] LABS: Glucose Point of Care 76 mg/dl (65-105)
--- NOTE | 2024-08-18 00:50 | PC.NURSE ---
Pt ambulatory to bathroom with steady gait.
--- NOTE | 2024-08-18 01:02 | PC.NURSE ---
Pt states she x1 BM, large, formed, and brown. Per pt feels she still needs to go more but is unable to.
--- NOTE | 2024-08-18 02:07 | PC.NURSE ---
pt ambulatory to bathroom with steady gait.
[2024-08-18 04:09] VITALS: BP 121/65; PULSE 57; RESP 16; O2SAT 100
== END 2024-08-18 04:07 | disposition home or self-care (01) ==
PROVIDERS: Emergency Provider Emergency Medicine; PCP Physician Assistant
DX: K59.00 Constipation, unspecified (principal); Q63.2 Ectopic kidney
CPT/HCPCS: 36415; 74177; 80053; 81003; 82948; 83690; 83735; 85025; 99284; Q9967